=== PATIENT | male | born 1950 | race Caucasian/White ===

== ENCOUNTER 2018-01-06 07:00 | Emergency (ER) | payer MEDICARE, BC ==
[2018-01-06 07:33] VITALS: BP 134/82
--- NOTE | 2018-01-06 08:00 | UC ---
Shoulder Pain HPI - HPI Summary HPI Summary: right shoulder pain x 4 weeks s/p right shoulder surgery , rotator cuff repair 4 weeks ago in [place] doing well , requesting physical therapy order - History of Current Complaint Chief Complaint: UCGeneralIllness Stated Complaint: PHYSICAL THEREPY REFERRAL Time Seen by Provider: 01/06/18 07:33 Hx Obtained From: Patient Onset/Duration: Gradual Onset, Lasting Weeks - 4, Still Present Timing: Constant Severity Initially: Moderate Severity Currently: Moderate Pain Intensity: 3 Pain Scale Used: 0-10 Numeric Character: Aching Aggravating Factor(s): Movement, Lifting, Flexion, Extension, Abduction Alleviating Factor(s): Rest, Ice Associated Signs And Symptoms: Positive: Weakness. Negative: Swelling, Redness , Bruising, Fever - Allergies/Home Medications Allergies/Adverse Reactions: Allergies Allergy/AdvReac Type Severity Reaction Status Date / Time acetaminophen Allergy Unknown Rash Verified 01/06/18 07:18 tramadol Allergy Unknown Difficulty Verified 01/06/18 07:18 Breathing Home Medications: Home Medications Amlodipine Besylate [Norvasc 5 mg tab] 5 mg PO DAILY 01/06/18 [History Confirmed 01/06/18] Aspirin 81 mg CHEW TAB* DAILY 01/06/18 [History] Atorvastatin* [Lipitor*] 20 mg PO DAILY 01/06/18 [History Confirmed 01/06/18] Cholecalciferol (Vitamin D3) [Vitamin D3] 1,000 unit PO 01/06/18 [History] Famotidine TAB* [Pepcid 20 MG TAB*] 20 mg PO DAILY 01/06/18 [History Confirmed 01/06/18] Fenofibrate(NF) [Tricor(NF)] 145 mg PO DAILY 01/06/18 [History Confirmed ] Fluticasone NASAL SPRAY 50MCG* [Flonase NASAL SPRAY 50MCG*] 2 spray BOTH NARES DAILY 01/06/18 [History Confirmed 01/06/18] Ibuprofen TAB* [Advil TAB*] 200 mg PO Q6H PRN 01/06/18 [History Confirmed ] Rabeprazole Sodium 20 mg PO BID 01/06/18 [History Confirmed 01/06/18] PMH/Surg Hx/FS Hx/Imm Hx - Additional Past Medical History Additional PMH: stable AAA Cardiovascular History: Hypertension - Surgical History Surgical History: Yes Surgery Procedure, Year, and Place: RIGHT ROTATOR CUFF REPAIR. T AND A - Social History Alcohol Use: Occasionally Substance Use Type: None Smoking Status (MU): Never Smoked Tobacco Review of Systems Constitutional: Negative Skin: Negative Eyes: Negative ENT: Negative Respiratory: Negative Cardiovascular: Negative Gastrointestinal: Negative Genitourinary: Negative Is Patient Immunocompromised?: No All Other Systems Reviewed And Are Negative: Yes Physical Exam Triage Information Reviewed: Yes Appearance: Well-Appearing, No Pain Distress, Well-Nourished Vital Signs: Initial Vital Signs Temp 97.7 F 01/06/18 07:24 Pulse 66 01/06/18 07:24 Resp 18 01/06/18 07:24 BP 134/82 01/06/18 07:24 Pulse Ox 99 01/06/18 07:24 Vital Signs Reviewed: Yes Eyes: Positive: Conjunctiva Clear ENT: Positive: Normal ENT inspection, Hearing grossly normal, Pharynx normal Neck: Positive: Supple, Nontender, No Lymphadenopathy Respiratory: Positive: Chest non-tender, Lungs clear, Normal breath sounds Cardiovascular: Positive: RRR, No Murmur, Pulses Normal Musculoskeletal: Positive: Strength Limited @ - right shoulder, ROM Limited @ - right shoulder, Other: - right shoulder : no swelling, mild bruising , diffuse tenderness good ROM on flexion , extension , abdoction , internal and external rotation . limitied strength Shoulder Course/Dx - Differential Dx/Diagnosis Provider Diagnoses: right shoulder pain Discharge - Sign-Out/Discharge Documenting (check all that apply): Discharge/Admit/Transfer - Discharge Plan Condition: Stable Disposition: HOME Patient Education Materials: Rotator Cuff Tear Repair (DC) Referrals: Non Staff,Doctor [Primary Care Provider] - If Needed Additional Instructions: Physical Therapy Order 3x per week for 6 weeks - Billing Disposition and Condition Condition: STABLE Disposition: Home
== END 2018-01-06 07:49 | disposition home or self-care (01) ==
LOC: UCCORT 07:00
DX: G89.18 Other acute postprocedural pain (principal); M25.511 Pain in right shoulder; M96.89 Other intraoperative and postprocedural complications and disorders of the musculoskeletal system; Y83.9 Surgical procedure, unspecified as the cause of abnormal reaction of the patient, or of later complication, without mention of misadventure at the time of the procedure; Y92.9 Unspecified place or not applicable; I10 Essential (primary) hypertension; Z88.6 Allergy status to analgesic agent
CPT/HCPCS: 99201; G0463

== ENCOUNTER 2018-02-22 07:21 | Emergency (ER) | payer MEDICARE, BC ==
[2018-02-22 07:43] VITALS: BP 135/79
--- NOTE | 2018-02-22 08:12 | UC ---
HPI Febrile Illness - HPI Summary HPI Summary: Fever, congestion, sore throat, cough headache for about 5 days. No nuchal rigidity, no vomiting or diarrhea, no skin infections, no urinary symptoms, no recent tick bites or erythema migranes. He is generally healthy and no DM. - History of Current Complaint Chief Complaint: UCGeneralIllness Time Seen by Provider: 02/22/18 07:58 Hx Obtained From: Patient Onset/Duration: Still Present Timing: Constant, Lasting Days Initial Severity: Moderate Current Severity: Moderate Pain Intensity: 1 Aggravating Factors: Nothing Alleviating Factors: OTC Medicine Associated Signs and Symptoms: Arthralgia, Chills, Cough, Headache - He says headache is mild., Myalgia, Sore Throat - Allergy/Home Medications Allergies/Adverse Reactions: Allergies Allergy/AdvReac Type Severity Reaction Status Date / Time acetaminophen Allergy Unknown Difficulty Verified 02/22/18 07:38 Breathing tramadol Allergy Unknown Difficulty Verified 02/22/18 07:38 Breathing PMH/Surg Hx/FS Hx/Imm Hx Previously Healthy: No - AAA - Surgical History Surgical History: Yes Surgery Procedure, Year, and Place: [facility], [address] [place] [address]; T&A - Family History Known Family History: Positive: Other - no related infectious symptoms in the family. - Social History Alcohol Use: 3-4/weekly Substance Use Type: None Smoking Status (MU): Never Smoked Tobacco Review of Systems Constitutional: Fever, Chills Skin: Negative Eyes: Negative ENT: Sore Throat, Sinus Congestion Respiratory: Cough Genitourinary: Negative Neurovascular: Negative Musculoskeletal: Negative All Other Systems Reviewed And Are Negative: Yes Physical Exam Triage Information Reviewed: Yes Appearance: Well-Appearing - Non toxic. Pleasant and comfortable., No Pain Distress, Well-Nourished Vital Signs: Initial Vital Signs Temp 100.8 F 02/22/18 07:33 Pulse 86 02/22/18 07:33 Resp 16 02/22/18 07:33 BP 135/79 02/22/18 07:33 Pulse Ox 97 02/22/18 07:33 Vital Signs Reviewed: Yes Eyes: Positive: Conjunctiva Clear ENT Exam: Normal ENT: Positive: Normal ENT inspection, Hearing grossly normal, Pharynx normal, Uvula midline. Negative: Pharyngeal erythema, Nasal congestion, Nasal drainage , TM bulging, TM dull, TM red - there is hamzah congestion in the ears with clear effusions without bulging., Tonsillar swelling, Tonsillar exudate, Trismus, Muffled voice, Sinus tenderness Neck: Positive: Supple, Nontender, No Lymphadenopathy. Negative: Nuchal Rigidity Respiratory: Positive: Lungs clear, Normal breath sounds, No respiratory distress, No accessory muscle use. Negative: Respiratory distress, Decreased breath sounds, Accessory muscle use, Crackles, Rhonchi, Stridor, Wheezing Cardiovascular: Positive: No Murmur, Pulses Normal, Brisk Capillary Refill Abdomen Description: Positive: No Organomegaly, Soft. Negative: Distended, Guarding Musculoskeletal: Positive: Strength Intact, ROM Intact. Negative: No Edema Neurological: Positive: Alert, Muscle Tone Normal. Negative: Fatigued Psychological: Positive: Age Appropriate Behavior Skin: Negative: rashes Course/Dx - Course Course Of Treatment: 5 days of fever however he appears quite well and non toxic. No nuchal rigidity and chin to chest does not illicit stiffness. Not immunocompromised and he is reliable. This is c/w with viral illness as there is congestion, sore throat and cough however due to age and duration (not severity) we will add urine studies and strep throat. Otherwise, if these are neg, he is reliable and will f/u with pcp or return here immediately for any worsening. - Febrile Illness Differential Diagnoses: Abscess, Bacteremia, Cellulitis, Encephalitis, Endocarditis, Fever of Unknown Origin, GI Disease, Meningitis, Neoplasm, Pneumonia, Pyelonephritis, Fults Spotted Fever, Sepsis, Viremia - Diagnoses Clinic Provider Diagnoses: Febrile illness. Viral illness. Discharge - Sign-Out/Discharge Documenting (check all that apply): Patient Departure - Discharge Plan Condition: Good Disposition: HOME Patient Education Materials: Fever in Adults (ED) Referrals: No Primary Care Phys,NOPCP [Primary Care Provider] - Additional Instructions: REturn here or to the ED or to your primary care doctor if any symptoms worsen or any new symptoms arise. - Billing Disposition and Condition Condition: GOOD Disposition: Home
== END 2018-02-22 08:40 | disposition home or self-care (01) ==
LOC: UCCORT 07:21
DX: R50.9 Fever, unspecified (principal); B34.9 Viral infection, unspecified; Z88.5 Allergy status to narcotic agent; Z88.8 Allergy status to other drugs, medicaments and biological substances
CPT/HCPCS: 81003; 87086; 87651; 99211; G0463

== ENCOUNTER 2018-02-26 07:02 | Emergency (ER) | payer MEDICARE, BC ==
[2018-02-26 07:19] VITALS: BP 121/68
--- NOTE | 2018-02-26 08:07 | RAD ---
HISTORY: fevers, body aches, sweats COMPARISONS: None VIEWS: 4: Frontal dual-energy and lateral views of the chest. FINDINGS: CARDIOMEDIASTINAL SILHOUETTE: The aorta is tortuous. The cardiomediastinal silhouette is otherwise unremarkable. JOSE: The jose are normal. PLEURA: The costophrenic angles are sharp. No pleural abnormalities are noted. LUNG PARENCHYMA: The lungs are clear. ABDOMEN: The upper abdomen is clear. There is no subphrenic gas. BONES AND SOFT TISSUES: Degenerative changes are noted along the spine. OTHER: None. IMPRESSION: NO ACTIVE CARDIOPULMONARY DISEASE.
[2018-02-26 11:23] LABS: Hematocrit 40 % (42-52); Mean Corpuscular HGB Conc 35 g/dl (31-36); Mean Corpuscular Hemoglobin 35 pg (27-31); Mean Corpuscular Volume 100 fL (80-94); Mean Platelet Volume 10.4 um3 (7.4-10.4); Platelet Count 113 10^3/ul (150-450); Red Cell Distribution Width 13 % (10.5-15)
[2018-02-26 12:12] LABS: ABS Basophils 0 10^3/ul (0-0.2); ABS Eosinophils 0 10^3/ul (0-0.6); ABS Lymphocytes 0.5 10^3/ul (1.0-4.8); ABS Monocytes 0.4 10^3/ul (0-0.8); ABS Nucleated RBC 0 10^3/ul; Eosinophil % 0.6 % (0-6); Nucleated Red Blood Cells % 0.2
--- NOTE | 2018-02-26 13:33 | ED ---
Progress - Progress Note Progress Note: Reviewed labwork with CBC suggestive viral suppression - platelet > 100 CMP - slight elevate of LFT CPK normal Pt without fever today - check x 2 reviewed return precautions with pt Lyme dx, [place], ebv pending ljj 02/26/2018 Discharge - Sign-Out/Discharge Documenting (check all that apply): Post-Discharge Follow Up - Discharge Plan Condition: Stable Disposition: HOME Patient Education Materials: Fever in Adults (ED) Referrals: Brandyn DONOHUE,Edwin Burton [Medical Doctor] - No Primary Care Phys,NOPCP [Primary Care Provider] - Additional Instructions: As discussed at today's visit, it is unclear the cause of your discomfort. The doctor discussed with you multiple possibilities including viral condition, bone marrow suppression, or other undiagnosed conditions. Your blood work has been drawn and tested today this includes CMC to look at platelets, white count , and anemia. You also had a complete metabolic panel, magnesium level, Lyme disease, western blot, and mono. Chest x-ray did not show signs of infection. The doctor discussed that if you have development of any new symptoms to include chest pain, shortness of breath, abdominal pain, any blood in your urine or blood in your gums, sudden unusual headache or any other concerns is recommended to go directly to emergency department. Pending the results of the lab work, you will receive a phone call from a care manufacturing team leader if there are abnormalities requiring any further evaluation. It is strongly recommended you go to the emergency department with any concerning changes. You've also been given the contact information for Dr. Ahumada, the infectious disease specialist contact his office this morning to schedule the soonest available follow-up appointment - Billing Disposition and Condition Condition: STABLE Disposition: Home
--- NOTE | 2018-02-27 08:26 | UC ---
General HPI - HPI Summary HPI Summary: Pt is a 67 you male presenting to for recheck of ongoing fevers. Pt states has had fevers x approx 7 days. Pt was evaluated at on the weeknd. Had neg strep, neg urine - told viral and continue with supportive care. Pt continues to have fevers to 103. Pt states has been taking ibuprofen (200mg-400mg) LAst fevers yesterday. Last ibuprofen this morning. Pt states x 24 hours has had small joint swelling, pain and achiness - improves wit motrin. No large joint discomfort. no myalgia. Pt states today noted petechia on b/l LE. No other complaints. No rodriguez, vision changes, sore throat, ear pain, cough. No cp, sob, abd pain. No n/v/d. No blood in gums. no hematuria. No pain in penis or testicle. decreased appetite - continues to eat and drink without difficulty. Pt has a PCP in [place] where lives 6 months a years. Pt is on Statin. No sick contact. No known tick bites. 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 Pt has not gone over seas. no travel outside [place]. Pt states "just wanted to get checked again." - History of Current Complaint Chief Complaint: UCGeneralIllness Stated Complaint: RE CHECK Time Seen by Provider: 02/26/18 07:20 Hx Obtained From: Patient, Medical Records Onset/Duration: Lasting Days Onset Severity: Mild Pain Intensity: 2 - Allergy/Home Medications Allergies/Adverse Reactions: Allergies Allergy/AdvReac Type Severity Reaction Status Date / Time acetaminophen Allergy Unknown Difficulty Verified 02/26/18 07:08 Breathing tramadol Allergy Unknown Difficulty Verified 02/26/18 07:08 Breathing PMH/Surg Hx/FS Hx/Imm Hx Previously Healthy: Yes Other Cardiovascular History: cholesterol - Surgical History Surgical History: Yes Surgery Procedure, Year, and Place: Right Shoulder, [facility], [place]; T&A - Family History Known Family History: Positive: Other - no related infectious symptoms in the family. - Social History Occupation: Retired - law enforcement Alcohol Use: Occasionally Substance Use Type: None Smoking Status (MU): Former Smoker When Did the Patient Quit Smoking/Using Tobacco: 15 years ago Review of Systems Constitutional: Fever, Fatigue Skin: Rash Musculoskeletal: Arthralgia Is Patient Immunocompromised?: No All Other Systems Reviewed And Are Negative: Yes Physical Exam - Summary Physical Exam Summary: Vital Signs Reviewed: Yes A+Ox3, no distress, pleasant, easily change position Eyes: Conjunctiva Clear, SAMMY. EOM intact and full no photophobia ENT: Hearing grossly normal TM x 2 clear, mmoist, uvula midline, no exudate, no erythema Neck: Positive: Supple, no lymphadenopathy Respiratory: Positive: No respiratory distress, No accessory muscle use + CTA throughout no w/r Cardiovascular: RRR nl s1, s2 no m/r CBT <2 sec abd soft + BS nt/nd no guarding, no distension Musculoskeletal Exam: LAWSON x 4 without difficulty Strength Intact, ROM Intact Neurological: Positive: Alert, + sensation throughout Psychological: Positive: Normal Response To Family Skin: Positive: no ecchymosis, pt with petechiae b/l feet to mid lower ext no other rashes, lesions Triage Information Reviewed: Yes Vital Signs: Initial Vital Signs Temp 97.1 F 02/26/18 07:10 Pulse 69 02/26/18 07:10 Resp 16 02/26/18 07:10 BP 121/68 02/26/18 07:10 Pulse Ox 97 02/26/18 07:10 Course/Dx - Course Course Of Treatment: Pt presents to UC with persistent fevers x 7 days although notes fevers have been less x 24 hours. Pt with some arhtrlagia and noted petechia b/l legs yesterday. t without other symptoms or complaints. I had a very long concerstation with pt - stable vs and well appearing. Pt reluctant to go to ED at this time. Will check labs at . If any concerning findings - pt in full agreement to go to ED for further assessment. If any changes to sx will go to ED. cotninue with hydrated. will space motrin given ?renal impact. d/w pt may have bone marrow suppression related to viral - will check cbc. Pt comfortable and in agreement with plan - Differential Dx - Multi-Symptom Provider Diagnoses: febrile illness. arthralgia. petechia Discharge - Sign-Out/Discharge Documenting (check all that apply): Patient Departure - Discharge Plan Condition: Stable Disposition: HOME Patient Education Materials: Fever in Adults (ED) Referrals: Brandyn DONOHUE,Edwin Burton [Medical Doctor] - No Primary Care Phys,NOPCP [Primary Care Provider] - Additional Instructions: As discussed at today's visit, it is unclear the cause of your discomfort. The doctor discussed with you multiple possibilities including viral condition, bone marrow suppression, or other undiagnosed conditions. Your blood work has been drawn and tested today this includes CMC to look at platelets, white count , and anemia. You also had a complete metabolic panel, magnesium level, Lyme disease, western blot, and mono. Chest x-ray did not show signs of infection. The doctor discussed that if you have development of any new symptoms to include chest pain, shortness of breath, abdominal pain, any blood in your urine or blood in your gums, sudden unusual headache or any other concerns is recommended to go directly to emergency department. Pending the results of the lab work, you will receive a phone call from a care guest service team leader if there are abnormalities requiring any further evaluation. It is strongly recommended you go to the emergency department with any concerning changes. You've also been given the contact information for Dr. Ahumada, the infectious disease specialist contact his office this morning to schedule the soonest available follow-up appointment - Billing Disposition and Condition Condition: STABLE Disposition: Home
== END 2018-02-26 08:21 | disposition home or self-care (01) ==
LOC: UCCORT 07:02
DX: R50.9 Fever, unspecified (principal); Z88.8 Allergy status to other drugs, medicaments and biological substances; Z88.5 Allergy status to narcotic agent; Z87.891 Personal history of nicotine dependence; M25.50 Pain in unspecified joint; R23.3 Spontaneous ecchymoses
CPT/HCPCS: 36415; 71046; 80053; 82550; 83735; 85025; 86308; 86618; 86788; 86789; 99212; G0463

== ENCOUNTER 2018-03-04 08:43 | Emergency (ER) | payer MEDICARE, BC ==
[2018-03-04 09:02] VITALS: BP 114/78
--- NOTE | 2018-03-04 09:24 | ED ---
Throat Pain/Nasal Congestion - HPI Summary HPI Summary: 67 yr old male with sinus pressure, post nasal drip, yellow green nasal discharge. Onset 5 days ago. He had had fever chill symptoms the week before and undergone a lab eval which the patient states Dr Licea discussed with him and for which he has been referred to Dr Driscoll in [place] for follow up and lab reevaluation and further work up diagnosis. The patient is here for the sinus complaint today. The patient reports that his feeling of fever, chills and ill feeling that he has the week before are gone now, and overall he is feeling much much better. - History of Current Complaint Chief Complaint: UCGeneralIllness Time Seen by Provider: 03/04/18 09:06 - Allergies/Home Medications Allergies/Adverse Reactions: Allergies Allergy/AdvReac Type Severity Reaction Status Date / Time acetaminophen Allergy Unknown Difficulty Verified 03/04/18 08:59 Breathing tramadol Allergy Unknown Difficulty Verified 03/04/18 08:59 Breathing PMH/Surg Hx/FS Hx/Imm Hx Cardiovascular History: Reports: Hx Hypertension - Surgical History Surgery Procedure, Year, and Place: [address]; T&A Infectious Disease History: No Infectious Disease History: Denies: Traveled Outside the [place] in Last 30 Days - Family History Known Family History: Positive: Other - no related infectious symptoms in the family. - Social History Occupation: Retired Alcohol Use: Occasionally Substance Use Type: Reports: None Smoking Status (MU): Former Smoker Review of Systems Positive: Other - his cold and fever symptoms are gone at this point Eyes: Negative Positive: Nasal Discharge, Other - sinus pressure Respiratory: Negative Negative: Abdominal Pain Musculoskeletal: Negative Skin: Negative Neurological: Negative All Other Systems Reviewed And Are Negative: Yes Physical Exam Triage Information Reviewed: Yes Vital Signs On Initial Exam: Initial Vitals Temp Pulse Resp BP Pulse Ox 97.6 F 87 15 114/78 100 03/04/18 08:55 03/04/18 08:55 03/04/18 08:55 03/04/18 08:55 03/04/18 08:55 Vital Signs Reviewed: Yes Appearance: Positive: Well-Appearing, No Pain Distress Skin: Positive: Warm, Skin Color Reflects Adequate Perfusion Head/Face: Positive: Normal Head/Face Inspection Eyes: Positive: EOMI, SAMMY ENT: Positive: Normal ENT inspection, Pharynx normal, Pharyngeal erythema, Nasal congestion, TMs normal, Sinus tenderness - bilateral maxillary. Negative : Muffled voice, Hoarse voice Respiratory/Lung Sounds: Positive: Clear to Auscultation, Breath Sounds Present Cardiovascular: Positive: RRR. Negative: Murmur Abdomen Description: Positive: Nontender Musculoskeletal: Positive: Strength/ROM Intact Neurological: Positive: Sensory/Motor Intact, Alert, Oriented to Person Place, Time, CN Intact II-III Psychiatric: Positive: Normal - Zeenat Coma Scale Best Eye Response: 4 - Spontaneous Best Motor Response: 6 - Obeys Commands Best Verbal Response: 5 - Oriented Coma Scale Total: 15 Diagnostics - Vital Signs Vital Signs Temp Pulse Resp BP Pulse Ox 03/04/18 08:55 97.6 F 87 15 114/78 100 - Laboratory Lab Statement: Any lab studies that have been ordered have been reviewed, and results considered in the medical decision making process. EENT Course/Dx - Course Course Of Treatment: 67 yr old male with sinusitis. Plan DC home on Augmentin. He states he is calling the ID doctor, Dr Driscoll in [place] for his follow up as already recommended by Dr Licea. - Diagnoses Provider Diagnoses: Sinusitis Discharge - Sign-Out/Discharge Documenting (check all that apply): Patient Departure - Discharge Plan Condition: Good Disposition: HOME Prescriptions: Amoxicillin/Clavulanate TAB* [Augmentin TAB 875*] 875 mg PO BID #20 tab Patient Education Materials: Sinusitis (ED) Referrals: No Primary Care Phys,NOPCP [Primary Care Provider] - Brandyn DONOHUE,Edwin Burton [Medical Doctor] - 1 Day - Billing Disposition and Condition Condition: GOOD Disposition: Home
== END 2018-03-04 09:36 | disposition home or self-care (01) ==
LOC: UCCORT 08:43
DX: J32.9 Chronic sinusitis, unspecified (principal); Z88.6 Allergy status to analgesic agent; I10 Essential (primary) hypertension
CPT/HCPCS: 99212; G0463